=== PATIENT | female | born 1960 | race Caucasian/White ===

== ENCOUNTER 2022-09-21 12:51 | Emergency (ER) | payer OTHER, MEDICAID, SELFPAY ==
[2022-09-21] VITALS (8 sets, daily range): BP systolic 111–156; BP diastolic 63–85; PULSE 63–90; RESP 15–23; TEMP 36.9; O2SAT 94–99; BMI 22.9
--- NOTE | 2022-09-21 13:18 | ED.ABDPAIN ---
HPI - Abdominal Pain <Kyler Luna PA-C - Last Filed: 09/21/22 18:37> General Chief Complaint: Abdominal Pain Stated Complaint: ABD pain NVD Time Seen by Provider: 09/21/22 13:05 Source: patient Mode of arrival: Ambulatory History of Present Illness HPI narrative: This is a 62-year-old female presents to the emergency department due to acute on chronic abdominal pain. She states that she had a cholecystectomy approximately 10 years ago and since then has had ?fluorescent yellow? stools as well as chronic crampy abdominal pain. She is spoken with the primary care provider about this but states that she just gets ?thrown around? and has not found a definitive cause of the abdominal discomfort. Patient also reports 2 days ago noticing episode of dark and tarry stools which has since improved. Patient denies any fevers, nausea, vomiting, shortness of breath, see other concerning signs or symptoms. Related Data Allergies Allergy/AdvReac Type Severity Reaction Status Date / Time ampicillin Allergy Verified 09/21/22 13:03 codeine Allergy Verified 09/21/22 13:03 Penicillins Allergy Verified 09/21/22 13:03 Review of Systems <Kyler Luna PA-C - Last Filed: 09/21/22 18:37> Review of Systems Narrative: GENERAL: Denies chills, fatigue, malaise, fever, sweats. HEENT: Denies sinus pain, ear pain, sore throat, difficulty swallowing, dizziness. RESPIRATORY: Denies dyspnea, cough, wheezing, hemoptysis, sputum. CARDIOVASCULAR: Denies chest pain, palpitations, orthopnea, edema, GASTROINTESTINAL: Reports abdominal pain, Denies nausea, vomiting, , diarrhea, constipation, melena. : Denies dysuria, frequency, incontinence, hematuria, urinary retention. MUSCULOSKELETAL: denies weakness, joint pain, or bony pain SKIN: Denies rash, skin lesions, or other NEUROLOGIC: Denies weakness, headache, numbness, change in speech, confusion, seizures, incoordination. PSYCHIATRIC: No concerning psychosocial issues. 12 point review of systems is negative except for those stated above Patient History <Kyler Luna PA-C - Last Filed: 09/21/22 18:37> Social History Smoking Status: Current every day smoker Smoking Status: Current every day smoker alcohol intake frequency: holidays/special occasions only Substance Use Type: does not use Exam <BERYL Peña Last Filed: 09/21/22 18:37> Narrative Exam Narrative: GENERAL: Well-developed patient, in mild distress. HEAD: Atraumatic. Normocephalic. EYES: Pupils equal round and reactive. Extraocular motions intact. No scleral icterus. No injection or drainage. ENT: Nose without bleeding, purulent drainage. Throat without erythema, tonsillar hypertrophy or exudate. Airway patent. NECK: Trachea midline. Non tender CARDIOVASCULAR: Regular rate and rhythm without murmurs, gallops, or rubs. RESPIRATORY: Clear to auscultation. Breath sounds equal bilaterally. No wheezes, rales, or rhonchi. GASTROINTESTINAL: Very mild generalized abdominal tenderness to palpation. Nondistended. EXTREMITIES: No edema or joint tenderness. BACK: Nontender without deformity or crepitance. No flank tenderness. NEURO: AOx3. SKIN: No rash or erythema of visible areas Initial Vital Signs Initial Vital Signs: Vital Signs Temperature 98.5 F 09/21/22 12:57 Pulse Rate 90 09/21/22 12:57 Respiratory Rate 15 09/21/22 12:57 Blood Pressure 156/85 H 09/21/22 12:57 Pulse Oximetry 99 09/21/22 12:57 Oxygen Delivery Method 09/21/22 12:57 <Nikia Forbes DO - Last Filed: 09/22/22 07:12> Initial Vital Signs Initial Vital Signs: Vital Signs Temperature 98.5 F 09/21/22 12:57 Pulse Rate 90 09/21/22 12:57 Respiratory Rate 15 09/21/22 12:57 Blood Pressure 156/85 H 09/21/22 12:57 Pulse Oximetry 99 09/21/22 12:57 Oxygen Delivery Method 09/21/22 12:57 Course <Kyler Luna PA-C - Last Filed: 09/21/22 18:37> Orders Ordered: ED Orders 09/21/22 13:03 EKG-12 Lead Stat 09/21/22 13:07 Complete Blood Count AUTO DIFF Stat Comprehensive Metabolic Panel Stat Lipase Stat Partial Thromboplastin Time Stat Prothrombin Time INR Stat 09/21/22 13:42 CT abdomen pelvis w con Stat 09/21/22 14:35 Urine Microscopic Stat Vital Signs Vital signs: Vital Signs - 8 hr 09/21/22 12:57 09/21/22 13:32 09/21/22 13:49 Temperature 98.5 F Pulse Rate 90 73 Respiratory Rate 15 21 Blood Pressure 156/85 H 122/63 Pulse Oximetry 99 94 Oxygen Delivery Method Room Air Room Air 09/21/22 13:49 09/21/22 14:00 09/21/22 14:47 Temperature Pulse Rate 78 73 69 Respiratory Rate 18 Blood Pressure Pulse Oximetry Oxygen Delivery Method 09/21/22 14:51 09/21/22 14:51 09/21/22 15:00 Temperature Pulse Rate 63 66 Respiratory Rate 23 Blood Pressure 111/79 Pulse Oximetry Oxygen Delivery Method 09/21/22 15:30 Temperature Pulse Rate 69 Respiratory Rate Blood Pressure Pulse Oximetry Oxygen Delivery Method <Nikia Forbes DO - Last Filed: 09/22/22 07:12> Orders Ordered: ED Orders 09/21/22 13:03 EKG-12 Lead Stat 09/21/22 13:07 Complete Blood Count AUTO DIFF Stat Comprehensive Metabolic Panel Stat Lipase Stat Partial Thromboplastin Time Stat Prothrombin Time INR Stat 09/21/22 13:42 CT abdomen pelvis w con Stat 09/21/22 14:35 Urine Microscopic Stat Vital Signs Vital signs: Vital Signs - 8 hr 09/21/22 12:57 09/21/22 13:32 09/21/22 13:49 Temperature 98.5 F Pulse Rate 90 73 Respiratory Rate 15 21 Blood Pressure 156/85 H 122/63 Pulse Oximetry 99 94 Oxygen Delivery Method Room Air Room Air 09/21/22 13:49 09/21/22 14:00 09/21/22 14:47 Temperature Pulse Rate 78 73 69 Respiratory Rate 18 Blood Pressure Pulse Oximetry Oxygen Delivery Method 09/21/22 14:51 09/21/22 14:51 09/21/22 15:00 Temperature Pulse Rate 63 66 Respiratory Rate 23 Blood Pressure 111/79 Pulse Oximetry Oxygen Delivery Method 09/21/22 15:30 Temperature Pulse Rate 69 Respiratory Rate Blood Pressure Pulse Oximetry Oxygen Delivery Method MDM - Abdominal Pain <Kyler Luna PA-C - Last Filed: 09/21/22 18:37> Lab Data Result diagrams: 09/21/22 13:07 09/21/22 13:07 Labs: Lab Results 09/21/22 09/21/22 09/21/22 Range/Units 13:07 13:07 13:07 WBC 8.0 (4.5-11.0) X10^3/uL RBC 4.70 (4.0-5.2) X10^6/uL Hgb 14.1 (12.0-16.0) g/dL Hct 42.7 (36-46) % MCV 90.7 (80-100) fL MCH 30.0 (26-34) PG MCHC 33.1 (30-36) % RDW 14.7 (11.6-14.8) % Plt Count 285 (150-400) X10^3/uL Neut % (Auto) 49.0 L (50-75) % Lymph % (Auto) 39.9 (25-40) % [place] % (Auto) 6.7 (3-14) % Eos % (Auto) 3.5 (2-4) % Baso % (Auto) 0.9 (0-2) % Neut # (Auto) 3900 (3723-4868) /uL Lymph # (Auto) 3200 (1727-3614) /uL [place] # (Auto) 500 (0-900) /uL Eos # (Auto) 300 (0-450) /uL Baso # (Auto) 100 (0-100) /uL PT 11.3 (10.1-12.7) SECONDS INR 1.0 (0.9-1.3) APTT 36 (26-36) SECONDS Sodium 142 (137-145) mmol/L Potassium 3.5 (3.4-5.1) mmol/L Chloride 106 (98-107) mmol/L Carbon Dioxide 26 (22-32) mmol/L BUN 5 L (7-17) mg/dL Creatinine 0.95 (0.52-1.04) mg/dL Estimated GFR > 60 (>60) mL/min BUN/Creatinine Ratio 5.3 L (6-22) Glucose 80 (80-110) mg/dL Calcium 8.6 (8.4-10.2) mg/dL Total Bilirubin 0.4 (0.2-1.3) mg/dL AST 21 (14-36) IU/L ALT 18 (<35) IU/L Alkaline Phosphatase 82 (38-126) U/L Total Protein 7.4 (6.3-8.2) g/dL Albumin 4.0 (3.5-5.0) g/dL Globulin 3.4 (1.7-4.1) g/dL Albumin/Globulin Ratio 1.2 (1.0-2.8) Lipase 767 H (23-300) U/L Urine RBC (0-5/HPF) Urine WBC (0-5/HPF) Ur Squamous Epith Cells (0-5/HPF) Urine Bacteria (None) Ur Culture Indicated? 09/21/22 Range/Units 14:35 WBC (4.5-11.0) X10^3/uL RBC (4.0-5.2) X10^6/uL Hgb (12.0-16.0) g/dL Hct (36-46) % MCV (80-100) fL MCH (26-34) PG MCHC (30-36) % RDW (11.6-14.8) % Plt Count (150-400) X10^3/uL Neut % (Auto) (50-75) % Lymph % (Auto) (25-40) % [place] % (Auto) (3-14) % Eos % (Auto) (2-4) % Baso % (Auto) (0-2) % Neut # (Auto) (0752-6171) /uL Lymph # (Auto) (0173-1549) /uL [place] # (Auto) (0-900) /uL Eos # (Auto) (0-450) /uL Baso # (Auto) (0-100) /uL PT (10.1-12.7) SECONDS INR (0.9-1.3) APTT (26-36) SECONDS Sodium (137-145) mmol/L Potassium (3.4-5.1) mmol/L Chloride (98-107) mmol/L Carbon Dioxide (22-32) mmol/L BUN (7-17) mg/dL Creatinine (0.52-1.04) mg/dL Estimated GFR (>60) mL/min BUN/Creatinine Ratio (6-22) Glucose (80-110) mg/dL Calcium (8.4-10.2) mg/dL Total Bilirubin (0.2-1.3) mg/dL AST (14-36) IU/L ALT (<35) IU/L Alkaline Phosphatase (38-126) U/L Total Protein (6.3-8.2) g/dL Albumin (3.5-5.0) g/dL Globulin (1.7-4.1) g/dL Albumin/Globulin Ratio (1.0-2.8) Lipase (23-300) U/L Urine RBC 0-1/hpf (0-5/HPF) Urine WBC None seen (0-5/HPF) Ur Squamous Epith Cells 1-5 /hpf (0-5/HPF) Urine Bacteria None seen (None) Ur Culture Indicated? Cult not indicated Point of care testing: Urine Dip Bedside Urine Glucose Negative Bedside Urine Bilirubin - Negative Bedside Urine Ketone - Negative Urine Specific [place] 1.015 Bedside Urine Occult Blood +/- Bedside Urine pH 6.0 Bedside Urine Protein - Negative Bedside Urine Urobilinogen - Negative Bedside Urine Nitrite - Negative Bedside Urine Leukocytes - Negative Esterase Imaging Data CT scan - abdomen/pelvis: Radiologist's Impression: [address] [address] [address] Scan Report Signed Patient: Joanie Camara MR#: [id number] : 1960 Acct:[id number] Age/Sex: 62 / F Date of Service: 09/21/22 Loc: ED Accession Number: [id number] ?? Procedure: CT abdomen pelvis w con Ordering Provider: Kyler Luna P.A-C PROCEDURE:? CT ABDOMEN PELVIS W CON ? INDICATIONS:? Epigastric abdominal pain ? TECHNIQUE:? After the administration of intravenous contrast, axial sections acquired from the lung bases to the pubic symphysis.? Coronal and sagittal reformats were performed.? For radiation dose reduction, the following was used:? automated exposure control, adjustment of mA and/or kV according to patient size.? ? COMPARISON:? None. ? FINDINGS:? Image quality:? Excellent.? ? Lung bases:? Unremarkable. Heart:? No significant findings. ? ABDOMEN: Liver:? Unremarkable.? ? Gallbladder:? Surgically absent? ? Biliary ducts:? Unremarkable.? ? Pancreas:? Unremarkable.? ? Spleen:? Unremarkable.? ? Adrenal Glands:? Unremarkable.? ? Kidneys and Ureters:? Unremarkable.? ? ? Stomach and Bowel:? Stomach is within normal limits.? There are multiple mildly distended and thickened small bowel loops within the abdomen and pelvis .? Colon is within normal limits.? Normal appendix. Peritoneum:? No abnormal intraperitoneal fluid.? No free air.? ? Ventral Wall: ? No hernias.? Abdominal Nodes:? No retroperitoneal or mesenteric adenopathy by size criteria.? Vessels:? Aorta and inferior vena cava are normal in size.? ? PELVIS: Pelvic Organs:? Unremarkable.? ? Bladder:? Unremarkable.? ? Pelvic Nodes: No enlarged lymph nodes.? Miscellaneous: No hernias are seen. ? ? ? Bones:? Unremarkable.? IMPRESSION:? 1. Findings suggestive of gastroenteritis. 2. Normal appendix.? ? ? Dictated by: Darrel Vinson M.D. on 09/21/2022 at 14:51 ? ? Approved by: Darrel Vinson M.D. on 09/21/2022 at 14:53 ? MDM Narrative Medical decision making narrative: This is a 62-year-old female presents to the emergency department due to acute on chronic abdominal pain. Patient did report 1 episode of reported dark tarry stools although multiple times she declined a stool guiac. CT abdomen and pelvis showed no abnormal findings but did suggest findings concerning for possible gastroenteritis. Labwork was unremarkable other than somewhat elevated lipase although not elevated enough to match the criteria for acute pancreatitis. Recommend patient follow-up with her primary care provider to further investigate the elevated lipase levels. <Nikia Forbes, DO - Last Filed: 09/22/22 07:12> Lab Data Labs: Lab Results 09/21/22 09/21/22 09/21/22 Range/Units 13:07 13:07 13:07 WBC 8.0 (4.5-11.0) X10^3/uL RBC 4.70 (4.0-5.2) X10^6/uL Hgb 14.1 (12.0-16.0) g/dL Hct 42.7 (36-46) % MCV 90.7 (80-100) fL MCH 30.0 (26-34) PG MCHC 33.1 (30-36) % RDW 14.7 (11.6-14.8) % Plt Count 285 (150-400) X10^3/uL Neut % (Auto) 49.0 L (50-75) % Lymph % (Auto) 39.9 (25-40) % [place] % (Auto) 6.7 (3-14) % Eos % (Auto) 3.5 (2-4) % Baso % (Auto) 0.9 (0-2) % Neut # (Auto) 3900 (0651-5836) /uL Lymph # (Auto) 3200 (9220-2768) /uL [place] # (Auto) 500 (0-900) /uL Eos # (Auto) 300 (0-450) /uL Baso # (Auto) 100 (0-100) /uL PT 11.3 (10.1-12.7) SECONDS INR 1.0 (0.9-1.3) APTT 36 (26-36) SECONDS Sodium 142 (137-145) mmol/L Potassium 3.5 (3.4-5.1) mmol/L Chloride 106 (98-107) mmol/L Carbon Dioxide 26 (22-32) mmol/L BUN 5 L (7-17) mg/dL Creatinine 0.95 (0.52-1.04) mg/dL Estimated GFR > 60 (>60) mL/min BUN/Creatinine Ratio 5.3 L (6-22) Glucose 80 (80-110) mg/dL Calcium 8.6 (8.4-10.2) mg/dL Total Bilirubin 0.4 (0.2-1.3) mg/dL AST 21 (14-36) IU/L ALT 18 (<35) IU/L Alkaline Phosphatase 82 (38-126) U/L Total Protein 7.4 (6.3-8.2) g/dL Albumin 4.0 (3.5-5.0) g/dL Globulin 3.4 (1.7-4.1) g/dL Albumin/Globulin Ratio 1.2 (1.0-2.8) Lipase 767 H (23-300) U/L Urine RBC (0-5/HPF) Urine WBC (0-5/HPF) Ur Squamous Epith Cells (0-5/HPF) Urine Bacteria (None) Ur Culture Indicated? 09/21/22 Range/Units 14:35 WBC (4.5-11.0) X10^3/uL RBC (4.0-5.2) X10^6/uL Hgb (12.0-16.0) g/dL Hct (36-46) % MCV (80-100) fL MCH (26-34) PG MCHC (30-36) % RDW (11.6-14.8) % Plt Count (150-400) X10^3/uL Neut % (Auto) (50-75) % Lymph % (Auto) (25-40) % [place] % (Auto) (3-14) % Eos % (Auto) (2-4) % Baso % (Auto) (0-2) % Neut # (Auto) (6492-0604) /uL Lymph # (Auto) (4855-7848) /uL [place] # (Auto) (0-900) /uL Eos # (Auto) (0-450) /uL Baso # (Auto) (0-100) /uL PT (10.1-12.7) SECONDS INR (0.9-1.3) APTT (26-36) SECONDS Sodium (137-145) mmol/L Potassium (3.4-5.1) mmol/L Chloride (98-107) mmol/L Carbon Dioxide (22-32) mmol/L BUN (7-17) mg/dL Creatinine (0.52-1.04) mg/dL Estimated GFR (>60) mL/min BUN/Creatinine Ratio (6-22) Glucose (80-110) mg/dL Calcium (8.4-10.2) mg/dL Total Bilirubin (0.2-1.3) mg/dL AST (14-36) IU/L ALT (<35) IU/L Alkaline Phosphatase (38-126) U/L Total Protein (6.3-8.2) g/dL Albumin (3.5-5.0) g/dL Globulin (1.7-4.1) g/dL Albumin/Globulin Ratio (1.0-2.8) Lipase (23-300) U/L Urine RBC 0-1/hpf (0-5/HPF) Urine WBC None seen (0-5/HPF) Ur Squamous Epith Cells 1-5 /hpf (0-5/HPF) Urine Bacteria None seen (None) Ur Culture Indicated? Cult not indicated Point of care testing: Urine Dip Bedside Urine Glucose Negative Bedside Urine Bilirubin - Negative Bedside Urine Ketone - Negative Urine Specific [place] 1.015 Bedside Urine Occult Blood +/- Bedside Urine pH 6.0 Bedside Urine Protein - Negative Bedside Urine Urobilinogen - Negative Bedside Urine Nitrite - Negative Bedside Urine Leukocytes - Negative Esterase ECG Data Interpretation: grace-sinus rhythm 67 TN interval 150 QRS [address] changes or T-wave inversions Discharge Plan Departure Patient Disposition: Home Clinical Impression: Gastroenteritis Activity Restrictions/Additional Instructions: Thank you for coming to the [facility] Emergency Department today. Your CT scan was unremarkable and showed no concerning acute findings. I do recommend you speak with your primary care provider for further follow-up and investigation elevated pancreatic enzyme levels. Please continue eating the diet your currently eating and continuing to drink plenty fluids. I also recommend you stop drinking alcohol as this may cause acute flare-ups in your pain. I hope you feel better soon. Visit Report Forms: Patient Portal/API <Nikia Forbes DO - Last Filed: 09/22/22 07:12> Cosign ED Attending Cosignature Attestation: I was immediately available in the department for consultation. Documentation has been reviewed. I agree with assessment and plan.
[2022-09-21 13:29] LABS: Add Manual Diff / Slide Review NO; Basophils Absolute Auto 100 /uL (0-100); Basophils Percent Auto 0.9 % (0-2); Eosinophils Absolute Auto 300 /uL (0-450); Eosinophils Percent Auto 3.5 % (2-4); Hematocrit 42.7 % (36-46); Hemoglobin 14.1 g/dL (12.0-16.0); Lymphocytes Absolute Auto 3200 /uL (1100-4500); Lymphocytes Percent Auto 39.9 % (25-40); Mean Corpuscular HGB Conc 33.1 % (30-36); Mean Corpuscular Volume 90.7 fL (80-100); Monocytes Absolute Auto 500 /uL (0-900); Monocytes Percent Auto 6.7 % (3-14); Neutrophils Absolute Auto 3900 /uL (1500-7000); Platelet Count 285 X10^3/uL (150-400); Red Cell Distribution Width 14.7 % (11.6-14.8)
[2022-09-21 13:32] LABS: Prothrombin Time 11.3 SECONDS (10.1-12.7)
[2022-09-21 13:35] LABS: PTT Partial Thromboplastin Tim 36 SECONDS (26-36)
[2022-09-21 13:37] LABS: Alanine Aminotransferase 18 IU/L (<35); Albumin Globulin Ratio 1.2 (1.0-2.8); Alkaline Phosphatase 82 U/L (38-126); Aspartate Aminotransferase 21 IU/L (14-36); BUN Creatinine Ratio 5.3 (6-22); Bilirubin Total 0.4 mg/dL (0.2-1.3); Blood Urea Nitrogen 5 mg/dL (7-17); Calcium 8.6 mg/dL (8.4-10.2); Carbon Dioxide 26 mmol/L (22-32); Chloride 106 mmol/L (98-107); Estimated Glomerular Filt Rate > 60 mL/min (>60); Globulin 3.4 g/dL (1.7-4.1); Glucose 80 mg/dL (80-110); HEMOLYSIS < 15 (0-50); Lipase 767 U/L (23-300); Potassium 3.5 mmol/L (3.4-5.1); Sodium 142 mmol/L (137-145); Total Protein 7.4 g/dL (6.3-8.2)
--- NOTE | 2022-09-21 13:42 | DI.CT.S_ITS ---
PROCEDURE: CT ABDOMEN PELVIS W CON INDICATIONS: Epigastric abdominal pain TECHNIQUE: After the administration of intravenous contrast, axial sections acquired from the lung bases to the pubic symphysis. Coronal and sagittal reformats were performed. For radiation dose reduction, the following was used: automated exposure control, adjustment of mA and/or kV according to patient size. COMPARISON: None. FINDINGS: Image quality: Excellent. Lung bases: Unremarkable. Heart: No significant findings. ABDOMEN: Liver: Unremarkable. Gallbladder: Surgically absent Biliary ducts: Unremarkable. Pancreas: Unremarkable. Spleen: Unremarkable. Adrenal Glands: Unremarkable. Kidneys and Ureters: Unremarkable. Stomach and Bowel: Stomach is within normal limits. There are multiple mildly distended and thickened small bowel loops within the abdomen and pelvis . Colon is within normal limits. Normal appendix. Peritoneum: No abnormal intraperitoneal fluid. No free air. Ventral Wall: No hernias. Abdominal Nodes: No retroperitoneal or mesenteric adenopathy by size criteria. Vessels: Aorta and inferior vena cava are normal in size. PELVIS: Pelvic Organs: Unremarkable. Bladder: Unremarkable. Pelvic Nodes: No enlarged lymph nodes. Miscellaneous: No hernias are seen. Bones: Unremarkable. IMPRESSION: 1. Findings suggestive of gastroenteritis. 2. Normal appendix. Dictated by: Darrel Vinson M.D. on 09/21/2022 at 14:51 Approved by: Darrel Vinson M.D. on 09/21/2022 at 14:53
[2022-09-21 15:17] LABS: RBC Urine 0-1/HPF (0-5/HPF); Squamous Epithelial Cell Urine 1-5 /HPF (0-5/HPF); WBC Urine None Seen (0-5/HPF)
[2022-09-21 15:18] LABS: Bacteria Urine None Seen; Culture Indicated Urine Cult Not Indicated
== END 2022-09-21 15:56 | disposition home or self-care (01) ==
PROVIDERS: Emergency Medicine; Emergency Provider Physician Assistant Medical
DX: K52.9 Noninfective gastroenteritis and colitis, unspecified (principal); R10.9 Unspecified abdominal pain
CPT/HCPCS: 36415; 74177; 80053; 81003; 81015; 83690; 85025; 85610; 85730; 93005; 99284

== ENCOUNTER 2022-10-02 11:42 | Emergency (ER) | payer OTHER, MEDICAID, SELFPAY ==
[2022-10-02 11:47] VITALS: BP 130/56; PULSE 78; RESP 14; TEMP 36.6; O2SAT 98; BMI 22.9
[2022-10-02 12:44] VITALS: O2SAT 95
[2022-10-02 12:46] VITALS: BP 120/71; PULSE 66; O2SAT 96
[2022-10-02 12:46] LABS: Add Manual Diff / Slide Review NO; Basophils Absolute Auto 100 /uL (0-100); Basophils Percent Auto 1.1 % (0-2); Eosinophils Absolute Auto 300 /uL (0-450); Eosinophils Percent Auto 5.2 % (2-4); Lymphocytes Absolute Auto 2600 /uL (1100-4500); Lymphocytes Percent Auto 37.9 % (25-40); Mean Corpuscular HGB Conc 33.3 % (30-36); Mean Corpuscular Hemoglobin 30.1 PG (26-34); Mean Corpuscular Volume 90.2 fL (80-100); Monocytes Absolute Auto 500 /uL (0-900); Monocytes Percent Auto 6.9 % (3-14); Neutrophils Absolute Auto 3300 /uL (1500-7000); Neutrophils Percent Auto 48.9 % (50-75); Platelet Count 280 X10^3/uL (150-400); Red Blood Cell Count 4.66 X10^6/uL (4.0-5.2); Red Cell Distribution Width 14.5 % (11.6-14.8); White Blood Cell Count 6.7 X10^3/uL (4.5-11.0)
--- NOTE | 2022-10-02 12:52 | ED.RECABL ---
HPI - Recheck/Abnormal Lab/Rx <Shelby Womack PA-C - Last Filed: 10/02/22 17:10> General Chief Complaint: Recheck/Abnormal Lab/Rx Stated Complaint: ER VISIT LAST WEEK/needs antibootics/pancreatitis Time Seen by Provider: 10/02/22 12:00 Source: patient Mode of arrival: Ambulatory History of Present Illness HPI narrative: 62-year-old female presents to the ED with chronic epigastric pain. Patient was seen in the ED on 09/21/2022 for the same complaint, workup showed a lipase elevated to 767, CT scan was normal. Patient left Against Medical Advice. Patient is here today since her PCP called her to come to the ED to get antibiotics, it is unclear the reason for it. Patient states she continues to have the epigastric pain which she describes as burning and radiating to the back. Patient denies fever, chills, chest pain, shortness of breath, nausea, vomiting, dysuria, lightheadedness, dizziness, syncope. Patient states she is had this epigastric pain on and off for several years. Patient states that this latest episode started a month ago when she drank some alcohol from [employer]. Patient states that she had abstained from alcohol for a long time since her brother was an alcoholic. Patient also states that she has some spots on her brain that she is being evaluated by a neurologist for. Related Data Home Medications Medication Instructions Recorded Confirmed No Known Home Medications 10/02/22 10/02/22 Allergies Allergy/AdvReac Type Severity Reaction Status Date / Time ampicillin Allergy Verified 10/02/22 11:52 codeine Allergy Verified 10/02/22 11:52 Penicillins Allergy Verified 10/02/22 11:52 Review of Systems <Shelby Womack PA-C - Last Filed: 10/02/22 17:10> Review of Systems ROS Unobtainable: All systems reviewed & are unremarkable except as noted in HPI and below Constitutional Constitutional: Denies chills, Denies fatigue, Denies fever(s), Denies frequent falls, Denies lethargy and Denies weakness Eyes Eyes: Denies change in vision, Denies eye discharge, Denies irritation and Denies loss of vision ENT Ears, Nose, Mouth, and Throat: Denies change in voice, Denies dizziness, Denies neck pain, Denies sore throat and Denies throat swelling Cardiovascular Cardiovascular: Denies chest pain, Denies irregular heart rhythm, Denies lightheadedness, Denies palpitations, Denies dyspnea, Denies dyspnea on exertion and Denies orthopnea Respiratory Respiratory: Denies cough, Denies dyspnea, Denies dyspnea on exertion and Denies wheezing Gastrointestinal Gastrointestinal: Reports abdominal pain, Denies change in bowel habits, Reports constipation, Denies diarrhea, Denies nausea and Denies vomiting Genitourinary Genitourinary: Denies hematuria, Denies flank pain, Denies urinary incontinence and Denies urinary urgency Musculoskeletal Musculoskeletal: Denies back pain, Denies muscle weakness, Denies neck pain, Denies numbness and Denies tingling Integumentary/Breasts Skin/Breast: Denies pruritus, Denies erythema, Denies rash and Denies wounds Neurologic Neurologic: Denies behavioral changes, Denies confusion, Denies dizziness, Denies frequent falls, Denies loss of vision, Denies numbness, Denies tingling and Denies weakness Psychiatric Psychiatric: Denies anxiety, Denies behavioral changes, Denies confusion, Denies depression, Denies homicidal ideation and Denies suicidal ideation Endocrine Endocrine: Denies fatigue, Denies flushing and Denies palpitations Hematologic/Lymphatic Hematologic/Lymphatic: Denies easy bruising Allergic/Immunologic Allergic/Immunologic: Denies urticaria, Denies throat swelling and Denies wheezing Patient History <Shelby Womack PA-C - Last Filed: 10/02/22 17:10> Social History Smoking Status: Current every day smoker Smoking Status: Current every day smoker alcohol intake frequency: holidays/special occasions only Substance Use Type: does not use Exam <Shelby Womack PA-C - Last Filed: 10/02/22 17:10> Narrative Exam Narrative: Const General:?cooperative, healthy appearing and comfortable [facility] Head:?normal to inspection Ears:?hearing grossly normal bilaterally Nose:?external nose normal Face and sinus:?normal facial exam and sinuses nontender Mouth:?oral mucosae normal Throat:?posterior oropharynx normal Eyes General:?appearance normal, both eyes and all related structures Neck Neck:?normal visual inspection and no lymphadenopathy noted Resp Effort & Inspection:?normal respiratory effort Auscultation:?clear to auscultation bilaterally Cardio Rate:?regular rate Rhythm:?regular rhythm GI Abdomen is soft, nondistended, nontender to palpation. No CVA tenderness. Neuro General:?patient alert, patient awake and patient oriented x3 Initial Vital Signs Initial Vital Signs: Vital Signs Temperature 97.8 F 10/02/22 11:47 Pulse Rate 78 10/02/22 11:47 Respiratory Rate 14 10/02/22 11:47 Blood Pressure 130/56 L 10/02/22 11:47 Pulse Oximetry 98 10/02/22 11:47 Oxygen Delivery Method 10/02/22 11:47 <Nicho Quiroz DO - Last Filed: 10/02/22 17:55> Initial Vital Signs Initial Vital Signs: Vital Signs Temperature 97.8 F 10/02/22 11:47 Pulse Rate 78 10/02/22 11:47 Respiratory Rate 14 10/02/22 11:47 Blood Pressure 130/56 L 10/02/22 11:47 Pulse Oximetry 98 10/02/22 11:47 Oxygen Delivery Method 10/02/22 11:47 Course <Shelby Womack PA-C - Last Filed: 10/02/22 17:10> Orders Ordered: ED Orders 10/02/22 12:14 EKG-12 Lead Stat 10/02/22 12:35 Complete Blood Count AUTO DIFF Stat Comprehensive Metabolic Panel Stat Ethanol (ETOH) Stat Lipase Stat Vital Signs Vital signs: Vital Signs - 8 hr 10/02/22 11:47 10/02/22 12:44 10/02/22 12:46 Temperature 97.8 F Pulse Rate 78 66 Respiratory Rate 14 Blood Pressure 130/56 L Pulse Oximetry 98 95 96 Oxygen Delivery Method Room Air 10/02/22 12:46 10/02/22 13:00 10/02/22 13:00 Temperature Pulse Rate 64 Respiratory Rate 16 Blood Pressure 120/71 111/68 Pulse Oximetry 97 Oxygen Delivery Method Room Air <Nicho Quiroz DO - Last Filed: 10/02/22 17:55> Orders Ordered: ED Orders 10/02/22 12:14 EKG-12 Lead Stat 10/02/22 12:35 Complete Blood Count AUTO DIFF Stat Comprehensive Metabolic Panel Stat Ethanol (ETOH) Stat Lipase Stat Vital Signs Vital signs: Vital Signs - 8 hr 10/02/22 11:47 10/02/22 12:44 10/02/22 12:46 Temperature 97.8 F Pulse Rate 78 66 Respiratory Rate 14 Blood Pressure 130/56 L Pulse Oximetry 98 95 96 Oxygen Delivery Method Room Air 10/02/22 12:46 10/02/22 13:00 10/02/22 13:00 Temperature Pulse Rate 64 Respiratory Rate 16 Blood Pressure 120/71 111/68 Pulse Oximetry 97 Oxygen Delivery Method Room Air MDM - Recheck/Abnormal Lab/Rx <Shelby Womack PA-C - Last Filed: 10/02/22 17:10> Lab Data Result diagrams: 10/02/22 12:35 10/02/22 12:35 Labs: Lab Results 10/02/22 10/02/22 10/02/22 Range/Units 12:35 12:35 12:35 WBC 6.7 (4.5-11.0) X10^3/uL RBC 4.66 (4.0-5.2) X10^6/uL Hgb 14.0 (12.0-16.0) g/dL Hct 42.0 (36-46) % MCV 90.2 (80-100) fL MCH 30.1 (26-34) PG MCHC 33.3 (30-36) % RDW 14.5 (11.6-14.8) % Plt Count 280 (150-400) X10^3/uL Neut % (Auto) 48.9 L (50-75) % Lymph % (Auto) 37.9 (25-40) % [place] % (Auto) 6.9 (3-14) % Eos % (Auto) 5.2 H (2-4) % Baso % (Auto) 1.1 (0-2) % Neut # (Auto) 3300 (2703-1538) /uL Lymph # (Auto) 2600 (7777-0401) /uL [place] # (Auto) 500 (0-900) /uL Eos # (Auto) 300 (0-450) /uL Baso # (Auto) 100 (0-100) /uL Sodium 137 (137-145) mmol/L Potassium 4.3 (3.4-5.1) mmol/L Chloride 106 (98-107) mmol/L Carbon Dioxide 23 (22-32) mmol/L BUN 7 (7-17) mg/dL Creatinine 0.87 (0.52-1.04) mg/dL Estimated GFR > 60 (>60) mL/min BUN/Creatinine Ratio 8.0 (6-22) Glucose 98 (80-110) mg/dL Calcium 8.8 (8.4-10.2) mg/dL Total Bilirubin 0.3 (0.2-1.3) mg/dL AST 25 (14-36) IU/L ALT 19 (<35) IU/L Alkaline Phosphatase 101 (38-126) U/L Total Protein 7.2 (6.3-8.2) g/dL Albumin 3.9 (3.5-5.0) g/dL Globulin 3.3 (1.7-4.1) g/dL Albumin/Globulin Ratio 1.2 (1.0-2.8) Lipase 142 (23-300) U/L Ethyl Alcohol < 10 ( - 10) mg/dL MDM Narrative Medical decision making narrative: Patient was seen in the ED on 09/21/2022 for the same complaint, workup showed a lipase elevated to 767, CT scan was normal. Concern for pancreatitis versus gastritis versus GERD versus other intra-abdominal pathology. Will obtain labs, lipase, lactate, UA. No indication for a repeat CT today, given benign abdomen on exam. Will re-evaluate. Lipase today is within normal limits at 1:42 a.m.. All other labs within normal limits. Patient declined to provide a urine sample. Patient left Against Medical Advice prior to discharge. <Nicho Quiroz, - Last Filed: 10/02/22 17:55> Lab Data Labs: Lab Results 10/02/22 10/02/22 10/02/22 Range/Units 12:35 12:35 12:35 WBC 6.7 (4.5-11.0) X10^3/uL RBC 4.66 (4.0-5.2) X10^6/uL Hgb 14.0 (12.0-16.0) g/dL Hct 42.0 (36-46) % MCV 90.2 (80-100) fL MCH 30.1 (26-34) PG MCHC 33.3 (30-36) % RDW 14.5 (11.6-14.8) % Plt Count 280 (150-400) X10^3/uL Neut % (Auto) 48.9 L (50-75) % Lymph % (Auto) 37.9 (25-40) % [place] % (Auto) 6.9 (3-14) % Eos % (Auto) 5.2 H (2-4) % Baso % (Auto) 1.1 (0-2) % Neut # (Auto) 3300 (7622-9329) /uL Lymph # (Auto) 2600 (1980-0726) /uL [place] # (Auto) 500 (0-900) /uL Eos # (Auto) 300 (0-450) /uL Baso # (Auto) 100 (0-100) /uL Sodium 137 (137-145) mmol/L Potassium 4.3 (3.4-5.1) mmol/L Chloride 106 (98-107) mmol/L Carbon Dioxide 23 (22-32) mmol/L BUN 7 (7-17) mg/dL Creatinine 0.87 (0.52-1.04) mg/dL Estimated GFR > 60 (>60) mL/min BUN/Creatinine Ratio 8.0 (6-22) Glucose 98 (80-110) mg/dL Calcium 8.8 (8.4-10.2) mg/dL Total Bilirubin 0.3 (0.2-1.3) mg/dL AST 25 (14-36) IU/L ALT 19 (<35) IU/L Alkaline Phosphatase 101 (38-126) U/L Total Protein 7.2 (6.3-8.2) g/dL Albumin 3.9 (3.5-5.0) g/dL Globulin 3.3 (1.7-4.1) g/dL Albumin/Globulin Ratio 1.2 (1.0-2.8) Lipase 142 (23-300) U/L Ethyl Alcohol < 10 ( - 10) mg/dL Discharge Plan Departure Patient Disposition: Left Against Medical Advice Clinical Impression: Left against medical advice Prescriptions: No Action No Known Home Medications Stand Alone Forms: Against Medical Advice <Nicho Quiroz, DO - Last Filed: 10/02/22 17:55> [facility] Dr Quiroz Co-Sign Statement: I was available for consultation during this patient's emergency department visit. This chart is signed by myself for administrative purposes only. I did not have direct contact with this patient during this visit. They were seen independently by the APC.
[2022-10-02 13:00] VITALS: BP 111/68; PULSE 64; RESP 16; O2SAT 97
[2022-10-02 13:03] LABS: Alanine Aminotransferase 19 IU/L (<35); Albumin 3.9 g/dL (3.5-5.0); Albumin Globulin Ratio 1.2 (1.0-2.8); Alkaline Phosphatase 101 U/L (38-126); Aspartate Aminotransferase 25 IU/L (14-36); Bilirubin Total 0.3 mg/dL (0.2-1.3); Blood Urea Nitrogen 7 mg/dL (7-17); Calcium 8.8 mg/dL (8.4-10.2); Carbon Dioxide 23 mmol/L (22-32); Chloride 106 mmol/L (98-107); Estimated Glomerular Filt Rate > 60 mL/min (>60); Globulin 3.3 g/dL (1.7-4.1); Glucose 98 mg/dL (80-110); HEMOLYSIS < 15 (0-50); Lipase 142 U/L (23-300); Potassium 4.3 mmol/L (3.4-5.1); Sodium 137 mmol/L (137-145); Total Protein 7.2 g/dL (6.3-8.2)
--- NOTE | 2022-10-02 13:33 | PC.NURSE ---
Pt stating she is sick of all this. Pt declines further care. Pt removed her IV. Bandage applied by this RN with pt permission. Pt removed bandage.
--- NOTE | 2022-10-02 13:50 | PC.NURSE ---
Pt declining to give urine sample. Pt becomes easily frustrated with this RN and at times yells.
[2022-10-02 14:04] LABS: Ethanol (ETOH) < 10 mg/dL
== END 2022-10-02 13:50 | disposition left against medical advice (07) ==
PROVIDERS: Emergency Provider Student in an Organized Health Care Education/Training Program
DX: R10.13 Epigastric pain (principal); K59.00 Constipation, unspecified
CPT/HCPCS: 36415; 80053; 80320; 83690; 85025; 93005; 93010; 99283

== ENCOUNTER 2023-09-04 13:40 | Emergency (ER) | payer OTHER, MEDICAID, SELFPAY ==
[2023-09-04] VITALS (8 sets, daily range): BP systolic 106–132; BP diastolic 57–76; PULSE 78–96; RESP 15–20; TEMP 37.9; O2SAT 94–96; BMI 24.3
--- NOTE | 2023-09-04 14:03 | DI.CT.S_ITS ---
PROCEDURE: CT CHEST ABD PEL W CON INDICATIONS: cough, abd pain, nausea/vomiting. TECHNIQUE: After the administration of intravenous contrast, 5 mm thick sections acquired from the lung apices to the symphysis. 2.5 mm thick coronal and sagittal reformats were acquired. Additional 7 mm thick coronal maximum intensity projection (MIP) reformats acquired through the lungs. Optional 10-minute delayed imaging may be performed from the kidneys to the bladder. For radiation dose reduction, the following was used: automated exposure control, adjustment of mA and/or kV according to patient size. COMPARISON: None. FINDINGS: Image quality: Good Lungs and pleura: Mild peripheral ground-glass opacities bilaterally, most obvious in the right mid lung. No pleural effusions. Scattered scarring and atelectasis. Small micro nodules and granulomas are probably incidental. For example 3/10 on the left Mediastinum, heart, and esophagus: Small hiatal hernia. Normal heart size. Coronary calcifications. Prominent mediastinal hilar lymph nodes may be reactive in this clinical setting. Chest wall and thyroid: Unremarkable Solid organs: The liver appears unremarkable. Subcentimeter lesions are too small to characterize, probably cysts. Cholecystectomy clips. No pathologic dilation of the biliary system or pancreatic duct. No splenomegaly. There is a left adrenal nodule measuring 1.5 cm. A right adrenal nodule is also seen measuring 1.3 cm. No hydronephrosis. Vessels and lymph nodes: The main portal vein is patent. Atherosclerotic calcifications without abdominal aortic aneurysm. No pathologic lymph nodes by size criteria. Bowel and peritoneum: No evidence of small bowel obstruction. Superiorly projecting rectal outpouching, possibly a diverticulum, without surrounding inflammation. No small bowel obstruction, drainable ascites, or abscess. Body wall: Fat and omentum containing periumbilical hernia. There is mild congestion. Small fat containing inguinal hernias also seen. Pelvis: Bladder is unremarkable. Reproductive organs appear physiologic on limited CT evaluation. Bones: There are degenerative changes. Heterogeneous osseous attenuation, possibly senescent. No acute or suspicious finding. IMPRESSION: Peripheral pulmonary ground-glass opacities, suspicious for viral, especially COVID pneumonia. No dense consolidation or pleural effusions. No acute finding in the abdomen or pelvis. Other findings as above. Consider future imaging surveillance to assess for resolution. Incidentally noted bilateral adrenal nodule, , likely present previously, but better imaged today, consider nonurgent adrenal protocol imaging to confirm whether these are adenomas. Dictated by: Cristino Siddiqui M.D. on 09/04/2023 at 15:35 Approved by: Cristino Siddiqui M.D. on 09/04/2023 at 15:42
[2023-09-04 14:22] LABS: Add Manual Diff / Slide Review NO; Basophils Absolute Auto 100 /uL (0-100); Eosinophils Absolute Auto 0 /uL (0-450); Eosinophils Percent Auto 0.1 % (2-4); Hemoglobin 13.8 g/dL (12.0-16.0); Lymphocytes Absolute Auto 1400 /uL (1100-4500); Lymphocytes Percent Auto 15.8 % (25-40); Mean Corpuscular HGB Conc 33.8 % (30-36); Mean Corpuscular Hemoglobin 30.3 PG (26-34); Mean Corpuscular Volume 89.7 fL (80-100); Monocytes Absolute Auto 700 /uL (0-900); Monocytes Percent Auto 8.3 % (3-14); Neutrophils Absolute Auto 6700 /uL (1500-7000); Neutrophils Percent Auto 74.8 % (50-75); Platelet Count 199 X10^3/uL (150-400); Red Blood Cell Count 4.57 X10^6/uL (4.0-5.2); Red Cell Distribution Width 14.3 % (11.6-14.8); White Blood Cell Count 8.9 X10^3/uL (4.5-11.0)
[2023-09-04] MEDS: ONDANSETRON 4 MG/2 ML INJ IV (14:25)
[2023-09-04] MEDS: SODIUM CHLORIDE 0.9% 1,000 ML 1000 ML IV (14:25)
--- NOTE | 2023-09-04 14:35 | ED.NAVMDI ---
HPI - Nausea/Vomiting/Diarrhea General Chief complaint: Fever Stated complaint: V/ T-11 since steroid shot Time Seen by Provider: 09/04/23 14:08 Source: patient Mode of arrival: Ambulatory History of Present Illness HPI Narrative: Patient has had past 11 days of nausea vomiting fever body aches chills and cough. Patient was seen at another hospital in the last week for the same complaint she was seen for neck pain and placed on order of steroids for her neck pain. Patient moving her head and neck without any difficulty or pain. Mouth is dry. Patient was evaluated by provider at previous facility and given steroids for neck pain. No improvement. Patient denies any sick contacts. Related Data Previous Rx's Medication Instructions Recorded ondansetron 4 mg disintegrating 4 mg PO Q8H PRN nausea and 09/04/23 tablet vomiting #20 tabs potassium chloride 10 mEq 10 meq PO BID #20 tabs 09/04/23 tablet,extended release Allergies Allergy/AdvReac Type Severity Reaction Status Date / Time ampicillin Allergy Verified 09/04/23 13:52 codeine Allergy Verified 09/04/23 13:52 Review of Systems Review of Systems Narrative: GENERAL: no positive distress, not toxic not dyspneic HEAD: Normocephalic. EYES: Pupils equal round ENT: Mucous membranes moist. NECK: Trachea midline. CARDIOVASCULAR: Regular rate and rhythm RESPIRATORY: Clear to auscultation. Breath sounds equal bilaterally. No wheezes, rales, or rhonchi. GASTROINTESTINAL: Abdomen soft, non-tender abdomen soft flat nontender no peritoneal signs EXTREMITIES: No gross deformities. BACK: No flank tenderness. NEURO: AOx4. SKIN: Warm and dry PSYCH: Not anxious, is cooperative ROS Unobtainable: All systems reviewed & are unremarkable except as noted in HPI and below Patient History Social History Smoking Status: Current every day smoker Smoking Status: Current every day smoker tobacco type: cigarettes alcohol intake frequency: holidays/special occasions only Substance Use Type: marijuana Exam Narrative Exam Narrative: GENERAL: in no distress, not toxic not dyspneic HEAD: Normocephalic. EYES: Pupils equal round ENT: Mucous membranes moist. Slightly dry lips and tongue NECK: Trachea midline. CARDIOVASCULAR: Regular rate and rhythm RESPIRATORY: Patient is speaking full sentences. No respiratory distress. Slightly coarse bilateral lung sounds but no wheezing rhonchi or rales. Not dyspneic or toxic GASTROINTESTINAL: Abdomen soft, non-tender EXTREMITIES: No gross deformities. BACK: No flank tenderness. NEURO: AOx4. SKIN: Warm and dry PSYCH: Not anxious, is cooperative Initial Vital Signs Initial Vital Signs: Vital Signs Temperature 100.3 F H 09/04/23 13:53 Pulse Rate 96 H 09/04/23 13:53 Respiratory Rate 16 09/04/23 13:53 Blood Pressure 132/76 09/04/23 13:53 Pulse Oximetry 94 09/04/23 13:53 Oxygen Delivery Method Room Air 09/04/23 13:53 Course Orders Ordered: Discontinued Medications Acetaminophen (Acetaminophen 325 Mg Tablet) 975 mg PO NOW ONE Stop: 09/04/23 15:53 Last Admin: 09/04/23 16:34 Dose: Not Given Documented By: CASSANDRA Sodium Chloride (Normal Saline 0.9%) 1,000 mls @ 1,000 mls/hr IV BOLUS ONE Stop: 09/04/23 15:02 Last Infusion: 09/04/23 16:03 Dose: Infused Documented By: Admin: 09/04/23 14:25 Dose: 1,000 mls/hr Documented By: CASSANDRA Ondansetron HCl (Ondansetron 4 Mg/2 Ml Inj) 4 mg IV NOW PRN PRN Reason: Nausea And Vomiting Last Admin: 09/04/23 14:25 Dose: 4 mg Documented By: CASSANDRA Ondansetron HCl (Ondansetron 4 Mg Odt) 4 mg SL NOW PRN PRN Reason: Nausea And Vomiting Potassium Chloride (Potassium Chloride 20 Meq Tab) 20 meq PO NOW ONE Stop: 09/04/23 16:02 Last Admin: 09/04/23 16:05 Dose: 20 meq Documented By: CASSANDRA Vital Signs Vital signs: Vital Signs - 8 hr 09/04/23 13:53 09/04/23 14:55 09/04/23 14:56 Temperature 100.3 F H Pulse Rate 96 H 83 Respiratory Rate 16 Blood Pressure 132/76 111/57 L Pulse Oximetry 94 96 Oxygen Delivery Method Room Air 09/04/23 14:56 09/04/23 15:00 09/04/23 15:00 Temperature Pulse Rate 80 81 Respiratory Rate Blood Pressure 113/60 Pulse Oximetry 96 96 Oxygen Delivery Method 09/04/23 15:15 09/04/23 15:30 09/04/23 15:30 Temperature Pulse Rate 83 78 Respiratory Rate 20 Blood Pressure 106/58 L Pulse Oximetry 96 95 Oxygen Delivery Method 09/04/23 15:45 09/04/23 16:00 09/04/23 16:00 Temperature Pulse Rate 82 78 Respiratory Rate 15 Blood Pressure 122/72 Pulse Oximetry 94 96 Oxygen Delivery Method MDM - Nausea/Vomiting/Diarrhea Lab Data 09/04/23 14:15 09/04/23 14:15 Labs: Lab Results 09/04/23 09/04/23 Range/Units 14:15 14:29 WBC 8.9 (4.5-11.0) X10^3/uL RBC 4.57 (4.0-5.2) X10^6/uL Hgb 13.8 (12.0-16.0) g/dL Hct 41.0 (36-46) % MCV 89.7 (80-100) fL MCH 30.3 (26-34) PG MCHC 33.8 (30-36) % RDW 14.3 (11.6-14.8) % Plt Count 199 (150-400) X10^3/uL Neut % (Auto) 74.8 (50-75) % Lymph % (Auto) 15.8 L (25-40) % [place] % (Auto) 8.3 (3-14) % Eos % (Auto) 0.1 L (2-4) % Baso % (Auto) 1.0 (0-2) % Neut # (Auto) 6700 (7127-3177) /uL Lymph # (Auto) 1400 (4214-3566) /uL [place] # (Auto) 700 (0-900) /uL Eos # (Auto) 0 (0-450) /uL Baso # (Auto) 100 (0-100) /uL PT 12.4 (10.1-12.7) SECONDS INR 1.1 (0.9-1.3) APTT 30 (26-36) SECONDS Sodium 132 L (137-145) mmol/L Potassium 2.8 L (3.4-5.1) mmol/L Chloride 95 L (98-107) mmol/L Carbon Dioxide 28 (22-32) mmol/L BUN 11 (7-17) mg/dL Creatinine 0.81 (0.52-1.04) mg/dL Estimated GFR > 60 (>60) mL/min BUN/Creatinine Ratio 13.6 (6-22) Glucose 101 (80-110) mg/dL Lactate 1.3 (0.7-2.1) mmol/L Calcium 8.6 (8.4-10.2) mg/dL Total Bilirubin 0.4 (0.2-1.3) mg/dL AST 27 (14-36) IU/L ALT 22 (<35) IU/L Alkaline Phosphatase 54 (38-126) U/L Total Protein 6.7 (6.3-8.2) g/dL Albumin 3.8 (3.5-5.0) g/dL Globulin 2.9 (1.7-4.1) g/dL Albumin/Globulin Ratio 1.3 (1.0-2.8) Lipase 97 (23-300) U/L Procalcitonin 0.05 (<0.5) ng/mL Chlamy pneumoniae PCR Not detected (Not Detect) Adenovirus (PCR) Not detected (Not Detect) B.parapertussis DNA PCR Not detected (Not Detecte) Coronavirus OC43 (PCR) Not detected (Not Detect) Coronavirus HKU1 (PCR) Not detected (Not Detect) Coronavirus 229E (PCR) Not detected (Not Detect) SARS-CoV-2 (PCR) Detected (Not Detecte) Coronavirus NL63 (PCR) Not detected (Not Detect) Human Metapneumovir PCR Not detected (Not Detect) Influenza Type A (PCR) Not detected (Not Detect) Influenza Type B (PCR) Not detected (Not Detect) M. pneumoniae (PCR) Not detected (Not Detect) Parainfluenza 1 (PCR) Not detected (Not Detect) Parainfluenza 2 (PCR) Not detected (Not Detect) Parainfluenza 3 (PCR) Not detected (Not Detect) Parainfluenza 4 (PCR) Not detected (Not Detect) RSV (PCR) Not detected (Not Detect) Entero/Rhino (PCR) Not detected (Not Detect) Imaging Data CT chest abdomen pelvis: Radiologist's Impression: [address] [address] [address] Scan Report Signed Patient: Joanie Camara MR#: [id number] : 1960 Acct:[id number] Age/Sex: 63 / F Date of Service: 09/04/23 Loc: ED Accession Number: [id number] Procedure: CT chest abd pel w con Ordering Provider: Blayne Dial MD PROCEDURE: CT CHEST ABD PEL W CON INDICATIONS: cough, abd pain, nausea/vomiting. TECHNIQUE: After the administration of intravenous contrast, 5 mm thick sections acquired from the lung apices to the symphysis. 2.5 mm thick coronal and sagittal reformats were acquired. Additional 7 mm thick coronal maximum intensity projection (MIP) reformats acquired through the lungs. Optional 10-minute delayed imaging may be performed from the kidneys to the bladder. For radiation dose reduction, the following was used: automated exposure control, adjustment of mA and/or kV according to patient size. COMPARISON: None. FINDINGS: Image quality: Good Lungs and pleura: Mild peripheral ground-glass opacities bilaterally, most obvious in the right mid lung. No pleural effusions. Scattered scarring and atelectasis. Small micro nodules and granulomas are probably incidental. For example 3/10 on the left Mediastinum, heart, and esophagus: Small hiatal hernia. Normal heart size. Coronary calcifications. Prominent mediastinal hilar lymph nodes may be reactive in this clinical setting. Chest wall and thyroid: Unremarkable Solid organs: The liver appears unremarkable. Subcentimeter lesions are too small to characterize, probably cysts. Cholecystectomy clips. No pathologic dilation of the biliary system or pancreatic duct. No splenomegaly. There is a left adrenal nodule measuring 1.5 cm. A right adrenal nodule is also seen measuring 1.3 cm. No hydronephrosis. Vessels and lymph nodes: The main portal vein is patent. Atherosclerotic calcifications without abdominal aortic aneurysm. No pathologic lymph nodes by size criteria. Bowel and peritoneum: No evidence of small bowel obstruction. Superiorly projecting rectal outpouching, possibly a diverticulum, without surrounding inflammation. No small bowel obstruction, drainable ascites, or abscess. Body wall: Fat and omentum containing periumbilical hernia. There is mild congestion. Small fat containing inguinal hernias also seen. Pelvis: Bladder is unremarkable. Reproductive organs appear physiologic on limited CT evaluation. Bones: There are degenerative changes. Heterogeneous osseous attenuation, possibly senescent. No acute or suspicious finding. IMPRESSION: Peripheral pulmonary ground-glass opacities, suspicious for viral, especially COVID pneumonia. No dense consolidation or pleural effusions. No acute finding in the abdomen or pelvis. Other findings as above. Consider future imaging surveillance to assess for resolution. Incidentally noted bilateral adrenal nodule, , likely present previously, but better imaged today, consider nonurgent adrenal protocol imaging to confirm whether these are adenomas. Dictated by: Cristino Siddiqui M.D. on 09/04/2023 at 15:35 Approved by: Cristino Siddiqui M.D. on 09/04/2023 at 15:42 [facility] Narrative Medical decision making narrative: Patient has had past 11 days of nausea vomiting fever body aches chills and cough. Patient was seen at another hospital in the last week for the same complaint she was seen for neck pain and placed on order of steroids for her neck pain. Patient moving her head and neck without any difficulty or pain. Mouth is dry. Patient was evaluated by provider at previous facility and given steroids for neck pain. No improvement. Patient denies any sick contacts. After history and exam CBC CMP EKG CT chest abdomen pelvis [facility] CC: Nausea vomiting fever Complicating co-morbidities: None Data collected from: Patient Medical records reviewed: ER records from [facility] ctr Differential considered: Includes but not limited to sepsis pneumonia bronchitis viral syndrome Exam documented above, pertinent findings include: Fever, slightly coarse lung sounds Lab Test results independently reviewed as above. Pertinent findings: WBC 8.9 hemoglobin 13.8 INR 1.1 sodium 132 potassium 2.8 GFR greater than 60 lactic acid 1.3 AST 27 ALT 22 procalcitonin 0.05 respiratory panel positive COVID Independently reviewed EKG normal sinus rhythm rate [address] elevation or depression Imaging studies independently reviewed: CT chest abdomen pelvis ground-glass opacity suspicious for COVID pneumonia Treatments: Normal saline Tylenol Re-evaluations: 4:15 p.m.. Friend at bedside. Friend is driving. Reviewed results with patient. At this time it does show she has COVID pneumonia. Not requiring supplemental oxygen. Has been walking to the bathroom without any respiratory distress. Return precautions reviewed with patient. She does desire discharge home. She does not want to be admitted. Prescription for Zofran and potassium will be provided. Not toxic at discharge. She desires discharge home Discussion: Appropriate for discharge home. Exam is reassuring. Patient not requiring supplemental oxygen. No admission indicated for COVID pneumonia at this time. Prescription for Zofran and potassium provided. Return precautions reviewed with her. She desires discharge home. Not toxic not dyspneic at time of discharge Diagnosis: COVID pneumonia Discharge Plan Departure Patient Disposition: Home Clinical Impression: Pneumonia due to COVID-19 virus, Acute hypokalemia, Acute vomiting Instructions: DI for Pneumonia -- Adult, DI for Hypokalemia, DI for Vomiting -- Adult, COVID-19 Activity Restrictions/Additional Instructions: Your workup has revealed that you have COVID pneumonia. But fortunately you not requiring supplemental oxygen. Please do continue quarantine 5 days unless you have fever and must remain quarantine until fever free 24 hours. Keep well hydrated. May continue Tylenol or ibuprofen for pain and fever. Your potassium levels were low. Prescription for potassium replacement has been provided for you as well. Nausea medication has been prescribed to you and sent to your pharmacy. See family doctor in a week for re-evaluation. Return if worse if any questions or concerns Prescriptions: New potassium chloride 10 mEq tablet extended release 10 meq PO BID Qty: 20 0RF ondansetron 4 mg tablet,disintegrating 4 mg PO Q8H PRN (Reason: nausea and vomiting) Qty: 20 0RF Referrals: Miscellaneous,Doctor, MD [Primary Care Provider] - Stand Alone Forms: Patient Portal/API
[2023-09-04 14:36] LABS: Lactate (Lactic Acid) 1.3 mmol/L (0.7-2.1)
[2023-09-04 14:37] LABS: Alanine Aminotransferase 22 IU/L (<35); Albumin 3.8 g/dL (3.5-5.0); Albumin Globulin Ratio 1.3 (1.0-2.8); Alkaline Phosphatase 54 U/L (38-126); Aspartate Aminotransferase 27 IU/L (14-36); BUN Creatinine Ratio 13.6 (6-22); Bilirubin Total 0.4 mg/dL (0.2-1.3); Blood Urea Nitrogen 11 mg/dL (7-17); Calcium 8.6 mg/dL (8.4-10.2); Carbon Dioxide 28 mmol/L (22-32); Chloride 95 mmol/L (98-107); Estimated Glomerular Filt Rate > 60 mL/min (>60); Globulin 2.9 g/dL (1.7-4.1); Glucose 101 mg/dL (80-110); HEMOLYSIS < 15 (0-50); Lipase 97 U/L (23-300); Potassium 2.8 mmol/L (3.4-5.1); Sodium 132 mmol/L (137-145); Total Protein 6.7 g/dL (6.3-8.2)
[2023-09-04 14:38] LABS: INR 1.1 (0.9-1.3); Prothrombin Time 12.4 SECONDS (10.1-12.7)
[2023-09-04 14:41] LABS: PTT Partial Thromboplastin Tim 30 SECONDS (26-36)
[2023-09-04 14:53] LABS: Procalcitonin 0.05 ng/mL (<0.5)
[2023-09-04 15:34] LABS: Adenovirus Not Detected (Not Detect); B. parapertussis Not Detected (Not Detecte); Bordetella pertussis Not Detected (Not Detect); Chlamydophila pneumoniae Not Detected (Not Detect); Coronavirus 229E Not Detected (Not Detect); Coronavirus HKU1 Not Detected (Not Detect); Coronavirus NL 63 Not Detected (Not Detect); Coronavirus OC43 Not Detected (Not Detect); Human Metapneumovirus Not Detected (Not Detect); Human Rhinovirus/Enterovirus Not Detected (Not Detect); Influenza A Not Detected (Not Detect); Influenza B Not Detected (Not Detect); Mycoplasma pneumoniae Not Detected (Not Detect); Parainfluenza Virus 1 Not Detected (Not Detect); Parainfluenza Virus 2 Not Detected (Not Detect); Parainfluenza Virus 3 Not Detected (Not Detect); Parainfluenza Virus 4 Not Detected (Not Detect); Respiratory Syncytial Virus Not Detected (Not Detect)
[2023-09-04 15:57] LABS: SARS- CoV-2 Detected (Not Detecte)
[2023-09-04] MEDS: POTASSIUM CHLORIDE 20 MEQ TAB PO (16:05)
== END 2023-09-04 16:36 | disposition home or self-care (01) ==
PROVIDERS: Emergency Provider Emergency Medicine
DX: U07.1 COVID-19 (principal); J12.82 Pneumonia due to coronavirus disease 2019; E87.6 Hypokalemia; R11.10 Vomiting, unspecified
CPT/HCPCS: 36415; 71260; 74177; 80053; 83605; 83690; 84145; 85025; 85610; 85730; 87633; 93005; 96361; 96374; 99284; J2405